=== PATIENT | male | born 1940 | race Caucasian/White ===

== ENCOUNTER 2023-01-02 03:35 | Emergency (ER) | payer OTHER ==
[~2023-01-02] VITALS: Ht 185.4 cm; Wt 68.0 kg
[2023-01-02 03:52] VITALS: BP_SYST 163
[2023-01-02 04:46] VITALS: BP_SYST 144
[2023-01-02] MEDS ORDERED: HYDR-3927 PO (04:49)
[2023-01-02 05:04] LABS: INR 3.1 (0.80-1.20)
[2023-01-02 05:06] LABS: PROTHROMBIN TIME 30.3 SECS (9.5-12.5)
== END 2023-01-02 05:03 | disposition home or self-care (01) ==
LOC: SED 03:35
DX: S46.001A Unspecified injury of muscle(s) and tendon(s) of the rotator cuff of right shoulder, initial encounter (principal); J44.9 Chronic obstructive pulmonary disease, unspecified; Z79.899 Other long term (current) drug therapy; X58.XXXA Exposure to other specified factors, initial encounter; Y93.89 Activity, other specified; Y92.89 Other specified places as the place of occurrence of the external cause; Y99.8 Other external cause status
CPT/HCPCS: 36415; 73030; 73060-TC; 85610-TC; 85730-TC; 99284